=== PATIENT | male | born 1955 | race Caucasian/White ===

== ENCOUNTER → 2016-11-14 | Outpatient (CLI) | payer MEDICARE, OTHER ==
[~2016-11-14] MED LIST: ACID CONTROL150 M1 PO; ALBUTEROL17 GM INH; ALPRAZOLAM0.25 MG PO; BUSPIRONE HCL30 MG PO; COUMADIN5 MG PO; CYANOCOBAL1000 MCG/M INJ; DEPO-TESTOS200 MG/ML INJ; GABAPENTIN800 MG PO; HYDROCODON-ACE1 EAC5 PO; LOPRESSOR PO; PERCOCET10 PO
--- NOTE | ~2016-11-14 | EKG ---
PATIENT: FABIENNE AMANDA UNIT #: [id number] Ventricular Rate: 85 BPM Atrial Rate: 85 BPM P-R Interval: 182 ms QRS Duration: 102 ms Q-T Interval: 356 ms QTC Calculation(Bezet): 423 ms P Baxter: 60 degrees Calculated R Baxter: -56 degrees Calculated T Baxter: 57 degrees Diagnosis Line: Normal sinus rhythm Diagnosis Line: Left axis deviation Diagnosis Line: Abnormal ECG Diagnosis Line: No previous ECGs available Diagnosis Line: Confirmed by GEENA HARO MD ([id number]) on Diagnosis Line: 11/14/2016 10:43:29 PM INTERPRETING MD: SOFIE
--- NOTE | ~2016-11-14 | CO ---
Unit #: [id number] #: [id number] Patient: FABIENNE AMANDA [id number] [address] [place], [place] [address] [id number] O MR#: [id number] NAME: FABIENNE AMANDA ROOM: Age: 61 Sex: M Admission Date: 11/14/2016 : 1955 Attending Physician: Carlos Villafuerte M.D. Primary Care Physician: No Primary Care Physician Consultation Date: 11/14/2016 CONSULTATION REPORT REVISED REPORT REASON FOR CONSULTATION Preoperative medical evaluation prior to left total knee revision with VMO repair as scheduled by Dr. Villafuerte. HISTORY OF PRESENT ILLNESS The patient is a 61-year-old male who presents to preprocedural screening for the reasons indicated above. He reports left knee pain and movement of the left knee joint with attempts at ambulation and with movement. He does not sleep well at night which he attributes to left lower extremity pain. He states he was evaluated at [facility] for sleep apnea but does not know for sure what the results of that test revealed. Denies PND, orthopnea. Has intermittent lightheadedness which is momentary and resolves spontaneously with position changes from lying to sitting position. Denies presyncope, syncope, and palpitations. Denies history of myocardial infarction, congestive heart failure, CVA, TIA, chronic kidney disease, and diabetes. He had a stress test performed prior to previous knee surgery and believes it was performed here at this facility; however, there are no reports in this regard in [facility]. He has never had cardiopulmonary issues perioperatively. He has no complaints at this time other than left knee and left lower extremity pain. He has been evaluated by Dr. Villafuerte and scheduled for the above referenced procedure. PAST MEDICAL HISTORY 1. Osteoarthritis. 2. Hypertension. 3. GERD. 4. Chew tobacco use. 5. Asthma. 6. Questionable history of seizure years ago during which time he blacked out but was never placed on antiepileptic drugs or seizure precautions. 7. History of bipolar disorder. 8. Anxiety. 9. PTSD. 10. Sciatic and degenerative disk disease along entire length of spine. 11. History of leukocytosis. 12. Low testosterone on hormone replacement therapy. 13. Risk factors for obstructive sleep apnea. 14. Obesity, BMI pending. 15. B12 deficiency. Unit #: [id number] #: [id number] Patient: FABIENNE AMANDA PAST SURGICAL HISTORY 1. Right rotator cuff repair x2. 2. Left rotator cuff repair x2. 3. Reverse left total shoulder. 4. Left total knee arthroplasty, April 2016. 5. Left total knee revision, June 26, 2016. 6. Bilateral cataract extractions. 7. Colonoscopy. Patient denies a personal and family history of complications to anesthesia. ALLERGIES Denies latex allergy. No known drug allergies. CURRENT MEDICATIONS 1. Alprazolam 0.25 mg p.o. b.i.d. 2. Buspirone HCl 30 mg p.o. b.i.d. 3. Gabapentin 800 mg p.o. q.i.d. 4. Hydrocodone/ACET 10/325 mg tab one p.o. q.4 hours. 5. Lopressor 50 mg p.o. every morning. 6. Ranitidine 150 mg p.o. b.i.d. 7. Cyanocobalamin 1000 mcg injected monthly. 8. Ventolin two puffs inhaled q.6 hours p.r.n. shortness of air. 9. Depo testosterone 200 mg injected every two weeks, last dose on November 08, 2016. SOCIAL HISTORY Has chewed tobacco for 31 years. Rarely consumes a beer and denies illicit drug use. FAMILY HISTORY Per review of Dr. Villafuerte's office note and confirmed with patient: Father - stroke, myocardial infarction, and hypertension. Mother - cancer. REVIEW OF SYSTEMS A 10-point review of systems is conducted and otherwise negative except as indicated under history of present illness and past medical history above. PHYSICAL EXAMINATION GENERAL: A 61-year-old male awake, alert in no acute distress. Very hard of hearing. VITAL SIGNS: Temperature 98, heart rate 86, respiratory rate 16, blood pressure 138/82, oxygen saturation 96% on room air. HEENT: Atraumatic, normocephalic. Sclerae anicteric. No discharge from eyes, ears, or nares. LYMPHATIC: No preauricular, postauricular, tonsillar, submental, anterior, posterior, cervical adenopathy. ENDOCRINE: No thyromegaly, thyroid nodules, or tenderness. RESPIRATORY: Clear to auscultation in all mace bilaterally without wheezes, rhonchi, rales. CARDIOVASCULAR: S1, S2. Regular rate and rhythm without murmur or rub. GASTROINTESTINAL: Bowel sounds positive x4. Soft, nontender, nondistended. EXTREMITIES: Left lower extremity 2+ edema. Calves soft, nontender. Left knee without wounds, wrapped in Jonathan wrap. Left ankle brace in place. MUSCULOSKELETAL: Strength 5/5 all extremities bilaterally with exception Unit #: [id number] #: [id number] Patient: FABIENNE AMANDA of left lower extremity secondary to pain with motion at the knee joint. NEUROLOGIC: Alert and oriented x3. Speech clear. Follows directions during examination. DIAGNOSTIC STUDIES LABORATORY: WBC 14.1, hemoglobin 15.4, hematocrit 47.8, platelet count 373,000. CRP 1.4. Sodium 135, potassium 4.2, chloride 103, CO2 of 22, glucose 161, BUN 6, creatinine 0.8, calcium 8.6. AST 16, ALT 14, alkaline phosphatase 77, bilirubin total 0.5, total protein 6.3, albumin 3.6. PT 11.8, INR 1.1. Urinalysis: Leukocyte esterase trace, nitrite negative, RBCs 2-5, WBCs 2-5, bacteria none seen. Urine culture and sensitivity not indicated at this time. MRSA nasal swab report pending at this time. IMAGING: A two-view chest x-ray report pending at this time. CARDIOVASCULAR: A 12-lead EKG normal sinus rhythm, left axis deviation. Confirmed report pending at this time. IMPRESSION The patient is a 61-year-old male, who presents to preprocedural screening for: 1. Preoperative medical evaluation prior to revision left total knee arthroplasty with VMO repair, per Dr. Villafuerte. The patient's Castellano Revised Cardiac Risk Index based on information available today and risk factors is 0.4 to 1%. This represents the patient's perioperative rate of fatal or nonfatal myocardial infarction, cardiopulmonary arrest, ventricular arrhythmia and/or pulmonary edema. This has been discussed in detail with the patient and he wishes to proceed with surgery as scheduled at this time. 2. Risk factors for obstructive sleep apnea: Patient will be monitored in PACU and obstructive sleep apnea protocol ordered postoperatively as indicated. I have requested the sleep apnea evaluation report from [facility]. 3. Hypertension: Blood pressure is stable at this time. Will monitor postoperative trend and adjust medications accordingly. 4. Gastroesophageal reflux disease. 5. Tobacco use - chew: The patient has been advised he will not be allowed to chew tobacco postoperatively. Will order Nicotine transdermally postop for Nicotine withdrawal symptoms. 6. History of asthma: Controlled. Will monitor and add inhaled bronchodilators if indicated. 7. Questionable seizure history: Patient was never placed on antiepileptic drugs or seizure precautions. At this time, there is no indication of confirmation of seizures. 8. Bipolar disorder: Continue current medications. The patient is stable. 9. Anxiety/posttraumatic stress disorder. 10. Sciatica/degenerative disk disease. 11. History of osteoarthritis. 12. History of leukocytosis with unknown etiology. 13. IV antibiotic in management if indicated will be per order of Dr. Villafuerte perioperatively. 14. Low testosterone on testosterone repletion with last treatment on November 08, 2016. Thank you for allowing us to participate in the care of this patient. Will gladly follow the patient for postop medical management pending order of Dr. Villafuerte. Unit #: [id number] #: [id number] Patient: FABIENNE AMANDA Dictated by... Jesika Rowell A.P.R.N. for Cassius Reina/jack TD: 11/15/2016 13:49 JOB #: [id number] CONSULTATION REPORT Page 1 of 1 X Jesika Rowell APRN X CONSULTATION REPORT
--- NOTE | ~2016-11-14 | CR63 ---
[facility] A Service of [facility] & [facility] RADIOLOGY TEXT RESULTS PATIENT: FABIENNE AMANDA LOCATION: [facility] : 55 UNIT #: [id number] AGE: [address]: Carlos Villafuerte MD SEX: M ORDER DR: [id number] [facility] [address] [place], [place] [address] [id number] O MR#: [id number] Acc #: [id number] NAME: FABIENNE AMANDA : 1955 SEX: M STUDY DATE/TIME: 11/14/2016 11:18 UNIT: [facility] ROOM: STUDY DESCRIPTION: CR Chest 2 View Attending Physician: Carlos Villafuerte M.D. Referring Physician: Carlos Villafuerte M.D. Ordering Physician: Carlos Villafuerte M.D. Primary Care Physician: No Primary Care Physician MEDICAL IMAGING REPORT This report is preliminary unless electronic signature is present EXAM Chest, 11/14/2016, [facility]. HISTORY 61-year-old male patient preop clearance left knee surgery. History of failed components with patella dislocation. COMPARISON Chest none. FINDINGS Two-view chest demonstrates a very large body habitus compromising the exam. There is mild cardiac enlargement and aortic ectasia. Lungs appear clear with no indicated effusion. Left shoulder hardware partially imaged. Interosseous anchor is partially imaged right shoulder. IMPRESSION Atherosclerotic cardiovascular disease with mild cardiomegaly and aortic ectasia. No acute chest finding suspect. No comparison images. Large body habitus. Dictated by... Issa Aguirre M.D. THIS IS AN ELECTRONICALLY VERIFIED REPORT Issa Aguirre M.D. at 11/14/2016 3:32 PM SUMAN/anushka TD: 11/14/2016 14:10 JOB #: [id number] MEDICAL IMAGING REPORT Page 1 of 1 COPY
[2016-11-14 10:09] LABS: HEMATOCRIT 47.8 % (38.0-50.0); HEMOGLOBIN 15.4 gm/dL (13.0-16.0); MEAN CELL VOLUME 80.7 FL (83-96); MEAN CORPUSCULAR HGB CONC 32.3 g/dL (30-36); MEAN PLATELET VOLUME 7.7 FL (6.5-11.5); RED BLOOD COUNT 5.92 X10e (3.90-5.60); RED CELL DISTRIBUTION WIDTH 17.8 % (11.0-15.5); WHITE BLOOD COUNT 14.1 X10e3 (4.0-10.5)
[2016-11-14 10:23] LABS: INR 1.1; PROTHROMBIN TIME (PATIENT) 11.8 SECONDS (10.0-11.7)
[2016-11-14 10:40] LABS: ALBUMIN SERUM 3.6 g/dL (3.5-5.0); BILIRUBIN,TOTAL 0.5 mg/dL (0.2-2.0); BUN/CREATININE RATIO 7.5; CALCIUM SERUM 8.6 mg/dL (8.4-10.2); CREATININE SERUM 0.8 mg/dL (0.6-1.4); GLOM FILT RATE Estimated 96.5 mL/min (>60); POTASSIUM 4.2 mmol/L (3.5-5.1); PROTEIN TOTAL SERUM 6.3 g/dL (6.0-8.3)
[2016-11-14 10:59] LABS: URINE APPEARANCE CLEAR; URINE BILIRUBIN NEG (NEG); URINE BLOOD NEG (NEG); URINE COLOR DK YELLOW; URINE GLUCOSE 100 MG/DL (NEG); URINE KETONE NEG (NEG); URINE LEUKOCYTE ESTERASE TRACE (NEG); URINE NITRATE NEG (NEG); URINE PH 5.5 (5-8); URINE PROTEIN NEG (NEG)
[2016-11-14 11:01] LABS: URINE BACTERIA AUWI NEG (NEGATIVE); URINE SQUAMOUS EPITHELIAL CELL NONE SEEN /[HPF]
[2016-11-14 11:02] LABS: CULTURE INDICATED? NO
== END | disposition home or self-care (01) ==
LOC: CAMB 09:34
PROVIDERS: Orthopaedic Surgery
DX: Z01.818 Encounter for other preprocedural examination (principal); T84.023A Instability of internal left knee prosthesis, initial encounter; K21.9 Gastro-esophageal reflux disease without esophagitis; I10 Essential (primary) hypertension; I25.10 Atherosclerotic heart disease of native coronary artery without angina pectoris; I51.7 Cardiomegaly; I77.819 Aortic ectasia, unspecified site; Z79.01 Long term (current) use of anticoagulants
CPT/HCPCS: 36415; 71020; 80053; 81003; 83036; 85027; 85610; 85652; 86140; 86850; 86900; 86901; 87070; 93005

== ENCOUNTER 2016-11-23 07:04 | Inpatient (IN) | payer MEDICARE, OTHER ==
[~2016-11-23] VITALS: Ht 177.8 cm; Wt 143.0 kg
--- NOTE | ~2016-11-23 | OR ---
Unit #: [id number] #: [id number] Patient: FABIENNE AMANDA [id number] [facility]. [place], [place] [address] [id number] I MR#: [id number] NAME: FABIENNE AMANDA. ROOM: [facility] Date of Procedure: 11/23/2016 Admission Date: 11/23/2016 Surgeon: Carlos Villafuerte M.D. : 1955 Attending Physician: Carlos Villafuerte M.D. 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 PROCEDURE PERFORMED Revision left total knee with repair of vastus medialis oblique. CHOKER HOOKER Philippe. ANESTHESIA Adductor canal block plus general. ESTIMATED BLOOD LOSS About 100 mL. DESCRIPTION OF PROCEDURE The patient was brought to the operating room, given 3 g of Kefzol and an adductor canal block. He was then given a general anesthetic. Tourniquet placed around the left thigh. The left leg was prepped and draped in a sterile fashion. Tourniquet inflated to 300. The previous skin incision was used. Subcutaneous dissected away. There was a defect in the arthrotomy from the mid patellar region superiorly. This had filled in with scar tissue. We were able to palpate the actual tendon edges, so the scar tissue in between was excised. The patella was slid laterally. The knee flexed and the previous polyethylene removed. The femoral component was then removed with a 1/2-inch straight osteotome, loosening it at the bone cement interface and then disimpacting it. After this was done, the tibia was subluxed anteriorly and the tibial component was removed. After the components throughout the tibia was reamed first up to a 14 and then the conical reamer was used for the MBT sleeve, we used a 14 x 75 stem and the largest MBT sleeve broach we can get in was a 45. The tibia was sized at a 4. We then reamed the femur up to a 14 x 75. The conical reamer was used for the [place] femoral sleeve and then the broaches were used up to a 40. The femur had been sized at a 5, so we then applied the cutting blocks off the sleeve, made the box cut for the TC3 and re-cut the chamfer cuts. The patient then had the trials applied. The knee was reduced. We found that the 10 mm insert gave appropriate stability in extension and Unit #: [id number] #: [id number] Patient: FABIENNE AMANDA flexion. This was a TC3 DePuy insert. The patella was inspected and it was well fixed. We did not remove this. We then removed all the trials. The real components were opened. The ropivacaine mixture was injected. The knee was irrigated and dried and then the cement was mixed and both components were impacted, cementing under the tray only on the tibia and under the femur only on the femoral side. Once the cement was hardened, we judged that the 10 insert was the appropriate thickness once again, so this was opened and applied to the tibial tray. This was a rotating platform, size 5, 10 mm thick TC3 insert. The knee was stable. The tourniquet released. Hemostasis obtained. The wound irrigated with Betadine and then bacitracin and then the arthrotomy was repaired using 0 Ethibond in the arthrotomy. The patella tracked properly and then we used 0 and 2-0 Vicryl in the subcutaneous and bere in the skin. Dictated by... Cassius Moses/hector TD: 11/23/2016 12:26 JOB #: [id number] OPERATIVE REPORT Page 1 of 1 X Carlos Villafuerte MD X PROCEDURE OPERATIVE NOTE
--- NOTE | ~2016-11-23 | DS ---
Unit #: [id number] #: [id number] Patient: FABIENNE AMANDA [id number] [facility]. [place], [place] [address] [id number] I MR#: [id number] NAME: FABIENNE AMANDA. ROOM: 459 Age: 61 Sex: M Admission Date: 11/23/2016 : 1955 Discharge Date: 11/26/2016 Attending Physician: Carlos Villafuerte M.D. DISCHARGE SUMMARY REASON FOR ADMISSION Flexion instability, left knee. PROCEDURES Left total knee revision for flexion instability. HOSPITAL COURSE The patient was admitted to [facility] with a history of flexion instability of his left knee. The patient has undergone the above procedure. Today the patient is in stable condition. His temperature is 98.2, blood pressure 152/71, heart rate 103 and regular, respirations 16. His incision is healing well. His neurovascular exam is intact. He has 2+ pulses in his lower extremity. Infectious disease was consulted because the patient's WBC had gone up to 26. Yesterday it was down to 18.3. The patient, today, is in stable condition and prefers to go home. DISPOSITION Home with home health. DISCHARGE MEDICATIONS Per med/rec list. He will be on his regular home medication with the addition of Coumadin 10 mg daily. He will get one injection of Lovenox today. 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 He will be followed by [facility]. The patient will need PT and INR done on 11/29, 12/04, 12/06, 12/08, 12/13, 12/17 and 12/20. Call the results to [phone] or fax to [phone]. The patient's skin bere are to be removed on 12/06/2016. The patient should wear TEDS during the day, off at night. After the bere are removed, the patient should have Steri-Strips placed 1/4 inch apart for 1 week. The patient should not drive until seen by Dr. Villafuerte. The patient will begin with physical therapy, including active and active-assist range of motion, strengthening, progressive ambulation. Begin with a walker and progress to a cane as tolerated. Dictated by... Bam Mena P.A.-C- Cassius Hines/lisa Unit #: [id number] #: [id number] Patient: FABIENNE AMANDA TD: 11/26/2016 10:18 JOB #: [id number] DISCHARGE SUMMARY Page 1 of 1 X X DISCHARGE SUMMARY
--- NOTE | ~2016-11-23 | CO ---
Unit #: [id number] #: [id number] Patient: FABIENNE AMANDA [id number] [place], [place] [address] [id number] I MR#: [id number] NAME: FABIENNE AMANDA. ROOM: 459 Age: 61 Sex: M Admission Date: 11/23/2016 : 1955 Attending Physician: Carlos Villafuerte M.D. Consultation Date: 11/24/2016 CONSULTATION REPORT REASON FOR CONSULTATION Leukocytosis. HISTORY OF PRESENT ILLNESS This is a 61-year-old gentleman who was admitted for revision of the left TKA because of mechanical derangements. He underwent that procedure yesterday, which included revision of the left total knee with a vastus medialis oblique. Surgery was done due to instability and avulsion of the vastus medialis oblique, also. There was no mention of any infection in the knee. I was asked to see today when his white count jumped to 26 from 17. The patient absolutely has no symptoms, especially without any fevers, chills, cough or drainage from the wound. He told me that he is known to have high white counts, which was as high as 31,000, and he is taken care of by Dr. Rakesh Fang in [place]. The exact etiology of the leukocytosis is not known to the patient, however. The patient is clinically stable. He is wide awake and alert and wants to go home. He has no fever, cough, sputum production, dysuria or diarrhea. PAST MEDICAL HISTORY 1. Osteoarthrosis. 2. Hypertension. 3. GERD. 4. Asthma. 5. Questionable history of seizures. 6. Bipolar disorder. 7. Anxiety. 8. PTSD. 9. DJD. 10. Obesity. PREVIOUS SURGERIES 1. Rotator cuff repair bilaterally. 2. Reverse left total shoulder. 3. Left total knee arthroplasty, April 2016. 4. Left total knee revision June 26 and again now (yesterday). 5. Bilateral cataract extraction. 6. Colonoscopy. DRUG ALLERGIES Latex. CURRENT MEDICATIONS Alprazolam, Celebrex, BuSpar, Xanax, Neurontin, Proventil, hydromorphone, Percocet, bisacodyl, Tylenol, Zofran, cyanocobalamin and Coumadin. He was Unit #: [id number] #: [id number] Patient: FABIENNE AMANDA given Kefzol preoperatively, as well. FAMILY HISTORY Family history is positive for stroke, myocardial infarction, hypertension and cancer. SOCIAL HISTORY He has a history of tobacco chewing for 31 years, rare use of beer. No drug use. SYSTEMIC REVIEW Systemic review is completely negative other than postoperative pain, which is normal. PHYSICAL EXAMINATION GENERAL: Physical examination reveals an obese, middle-aged male who is awake and alert, in no acute distress. He is fully conscious and oriented to time, place and person. VITAL SIGNS: Temperature is 98.2. No fever was documented during this admission. Heart rate is 83, respirations 18, blood pressure 113/76. NECK: Neck is supple. There is no JVD. EXTREMITIES: There is trace edema bilaterally. Left knee is in surgical dressing. The wound was not examined. According to notes and nurses, it looks clean. LUNGS: Lungs are clear to percussion and auscultation. CARDIOVASCULAR: Heart sounds are normal. ABDOMEN: Abdomen is soft and nontender without organomegaly or ascites. Bowel sounds are normal. NEUROLOGIC: Examination is nonfocal. DIAGNOSTIC STUDIES LABORATORY DIAGNOSTIC STUDIES: BMP is unremarkable. White count is 26.1, hemoglobin 12.6, hematocrit 40.8, platelets 363, neutrophils 79.7%, lymphocytes 8.4. His white count yesterday was 17.6. IMPRESSION Leukocytosis, which appears to be chronic and not related to infection. He probably has some kind of myeloproliferation disorder since he follows with Dr. Fang of hematology on a regular basis and has had white count elevations up to 31,000. Current jump could be from recent surgery. I do not suspect any active infectious process. RECOMMENDATIONS No antibiotic therapy is necessary at this time. I will agree to repeat CBC. 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 Further recommendations will follow. Dictated by... Cassius Winston TD: 11/26/2016 07:41 JOB #: [id number] Unit #: [id number] #: [id number] Patient: FABIENNE AMANDA CONSULTATION REPORT Page 1 of 1 X Hunter Oakes MD CONSULTATION REPORT
--- NOTE | ~2016-11-23 | BMI ---
[facility] Nutrition Therapy DATE: 11/24/16 Patient: FABIENNE AMANDA Physician: CHAZ Address: [address] [place] [address] Room/Bed: [address] [place] [address], Zip: [place] [address] Admit Date: 11/23/16 Date of : 55 Height: 5 10 Weight: 313 142.1 HIGH BMI NOTE: DX: PATIENT ADMITTED FOR FAILED COMPONENT OF L-TOTAL KNEE ANTHROPOMETRICS: HT: 70", WT: 313#, BMI: 44.9 DIET: REGULAR RECOMMENDATIONS: RECOMMEND ADDING HEART HEALTHY TO CURRENT DIET ORDER TO PROMOTE A STEADY WEIGHT LOSS TOWARDS A HEALTHY BMI OF 19-25 Respectfully, ENAL MESSINA, BRIA, LD [facility] cc: client file
[~2016-11-23 07:04] MED LIST changes: -COUMADIN5 MG PO; -PERCOCET10 PO
[2016-11-23 07:59] LABS: BASOPHIL# 0.2 X10e3 (0-0.3); BASOPHIL% 1.2 % (0-2.5); EOSINOPHIL# 0.6 X10e3 (0-0.7); EOSINOPHIL% 3.3 % (0.0-7.0); HEMATOCRIT 47.3 % (38.0-50.0); HEMOGLOBIN 15.2 gm/dL (13.0-16.0); LYMPHOCYTE# 3.4 X10e3 (1.0-3.5); LYMPHOCYTE% 19.4 % (17.0-45.0); MEAN CELL VOLUME 79.9 FL (83-96); MEAN CORPUSCULAR HEMOGLOBIN 25.7 PG (28-34); MEAN CORPUSCULAR HGB CONC 32.2 g/dL (30-36); MEAN PLATELET VOLUME 7.8 FL (6.5-11.5); MONOCYTE% 11.6 % (3.0-12.0); NEUTROPHIL# 11.4 X10e3 (1.5-7.1); NEUTROPHIL% 64.5 % (40-75); PLATELET COUNT 412 X10e3 (140-420); RED BLOOD COUNT 5.93 X10e (3.90-5.60); RED CELL DISTRIBUTION WIDTH 17.9 % (11.0-15.5); WHITE BLOOD COUNT 17.6 X10e3 (4.0-10.5)
[2016-11-23 08:00] LABS: DIFF IND YES
[2016-11-23 08:09] LABS: INR 1.1; PROTHROMBIN TIME (PATIENT) 11.5 SECONDS (10.0-11.7)
[2016-11-23 08:16] LABS: PLATELET ESTIMATE NORMAL (NORMAL)
[2016-11-23 08:17] LABS: ANISOCYTOSIS MOD
[2016-11-24 03:40] LABS: BASOPHIL# 0.1 X10e3 (0-0.3); BASOPHIL% 0.4 % (0-2.5); EOSINOPHIL% 0.2 % (0.0-7.0); HEMATOCRIT 40.8 % (38.0-50.0); LYMPHOCYTE# 2.2 X10e3 (1.0-3.5); LYMPHOCYTE% 8.4 % (17.0-45.0); MEAN CELL VOLUME 81.3 FL (83-96); MEAN CORPUSCULAR HEMOGLOBIN 25.1 PG (28-34); MEAN CORPUSCULAR HGB CONC 30.9 g/dL (30-36); MEAN PLATELET VOLUME 8.1 FL (6.5-11.5); MONOCYTE# 2.9 X10e3 (0-1.0); MONOCYTE% 11.3 % (3.0-12.0); NEUTROPHIL# 20.8 X10e3 (1.5-7.1); NEUTROPHIL% 79.7 % (40-75); PLATELET COUNT 363 X10e3 (140-420); RED BLOOD COUNT 5.02 X10e (3.90-5.60); RED CELL DISTRIBUTION WIDTH 17.8 % (11.0-15.5); WHITE BLOOD COUNT 26.1 X10e3 (4.0-10.5)
[2016-11-24 03:48] LABS: INR 1.3; PROTHROMBIN TIME (PATIENT) 14.2 SECONDS (10.0-11.7)
[2016-11-24 03:52] LABS: HEMOGLOBIN 12.6 gm/dL (13.0-16.0)
[2016-11-24 03:53] LABS: DIFF IND NO
[2016-11-24 04:34] LABS: BUN/CREATININE RATIO 17.5; CALCIUM SERUM 8.9 mg/dL (8.4-10.2); CREATININE SERUM 0.8 mg/dL (0.6-1.4); GLOM FILT RATE Estimated 96.5 mL/min (>60); MAGNESIUM 2.1 mg/dL (1.6-3.0)
[2016-11-25 03:54] LABS: HEMATOCRIT 41.6 % (38.0-50.0); HEMOGLOBIN 13.2 gm/dL (13.0-16.0); MEAN CELL VOLUME 80.9 FL (83-96); MEAN CORPUSCULAR HEMOGLOBIN 25.7 PG (28-34); MEAN CORPUSCULAR HGB CONC 31.8 g/dL (30-36); MEAN PLATELET VOLUME 8.1 FL (6.5-11.5); RED BLOOD COUNT 5.14 X10e (3.90-5.60); RED CELL DISTRIBUTION WIDTH 17.5 % (11.0-15.5); WHITE BLOOD COUNT 18.3 X10e3 (4.0-10.5)
[2016-11-25 04:02] LABS: INR 1.3; PROTHROMBIN TIME (PATIENT) 13.9 SECONDS (10.0-11.7)
[2016-11-25 08:34] LABS: INR 1.4; PROTHROMBIN TIME (PATIENT) 14.7 SECONDS (10.0-11.7)
[2016-11-26 07:32] LABS: INR 1.6; PROTHROMBIN TIME (PATIENT) 16.9 SECONDS (10.0-11.7)
[2016-11-26] MEDS ORDERED: PERCOCET10 PO (08:59)
[2016-11-26] MEDS ORDERED: COUMADIN5 MG PO (09:08)
== END 2016-11-26 14:46 | disposition home health service (06) | DRG 467 ==
LOC: CSUR 07:04 → C4B 08:44 → CSUR 08:44 → CPACUOF 08:44 → CSUR 09:00 → C4B 09:02 → CPACUOF 09:02 → CSUR 12:00 → C4B 12:39 → CPACUOF 12:39 → C4B 11-24 17:27
PROVIDERS: Internal Medicine Endocrinology, Diabetes & Metabolism; Nurse Practitioner; Orthopaedic Surgery
PROC: 0SRD0J9 Replacement of Left Knee Joint with Synthetic Substitute, Cemented, Open Approach (ICD-10-PCS; 2016-11-23)
PROC: 0SPD0JZ Removal of Synthetic Substitute from Left Knee Joint, Open Approach (ICD-10-PCS; principal; 2016-11-23 09:00)
DX: T84.023A Instability of internal left knee prosthesis, initial encounter (principal); Z68.41 Body mass index [BMI] 40.0-44.9, adult; I10 Essential (primary) hypertension; Z98.42 Cataract extraction status, left eye; Z98.41 Cataract extraction status, right eye; K21.9 Gastro-esophageal reflux disease without esophagitis; Z82.3 Family history of stroke; Z82.49 Family history of ischemic heart disease and other diseases of the circulatory system; E66.9 Obesity, unspecified; F43.10 Post-traumatic stress disorder, unspecified; F41.9 Anxiety disorder, unspecified; F31.9 Bipolar disorder, unspecified; S76.99 Other specified injury of unspecified muscles, fascia and tendons at thigh level; F17.220 Nicotine dependence, chewing tobacco, uncomplicated; J45.909 Unspecified asthma, uncomplicated
CPT/HCPCS: 80048; 82947; 83735; 85025; 85027; 85610; 94640; 94760; 97110; 97116; 97161; 97166; 97530; C1713; C1776; G8978-GP; G8979-GP; G8980-GP; G8987-GO; G8988-GO; J0131; J0171; J0330; J0690; J0735; J1100; J1170; J1650; J1885; J2250; J2405; J2795; J3010